=== PATIENT | female | born 1965 | race Caucasian/White ===

== ENCOUNTER 2016-02-19 16:23 | Emergency (ER) | payer BC, OTHER ==
[~2016-02-19] VITALS: Ht 165.1 cm; Wt 112.5 kg
[2016-02-19 17:17] LABS: BASOPHILS # (AUTO) 0.1 /CMM (0.0-0.2); BASOPHILS % (AUTO) 0.8 % (0.0-2.0); DIFF TOTAL % 100 %; EOSINOPHILS # (AUTO) 0.1 /CMM (0.0-0.7); EOSINOPHILS % (AUTO) 1.2 % (0.0-6.0); HEMATOCRIT 37 % (33-45); HEMOGLOBIN 12.6 g/dL (11.5-14.8); LYMPHOCYTES # (AUTO) 1.8 /CMM (0.8-4.8); LYMPHOCYTES % (AUTO) 18.8 % (20.0-44.0); MEAN CORPUSCULAR HEMOGLOBIN 30 PG (26.0-33.0); MEAN CORPUSCULAR HGB CONC 34 g/dl (31.0-36.0); MEAN CORPUSCULAR VOLUME 89 fL (82-100); MONOCYTES # (AUTO) 1.2 /CMM (0.1-1.30); MONOCYTES % (AUTO) 12.1 % (2.0-12.0); NEUTROPHILS # (AUTO) 6.6 /CMM (1.8-8.9); NEUTROPHILS % (AUTO) 67.1 % (43.0-81.0); PLATELET COUNT (AUTO) 215 /CMM (150-450); RED BLOOD CELL COUNT(AUTO) 4.19 MIL/uL (4.0-5.2); WHITE BLOOD COUNT (AUTO) 9.8 K/uL (4.3-11.0)
[2016-02-19 17:34] LABS: TROPONIN I < 0.017 ng/mL (0.00-0.056)
[2016-02-19 17:40] LABS: ANION GAP 8 (5-14); CALCIUM, SERUM 8.2 mg/dL (8.5-10.1); CARBON DIOXIDE 31 mmol/L (21-32); CHLORIDE 104 mmol/L (98-107); CREATININE 0.7 mg/dL (0.6-1.3); GFR 88 mL/min (>60); GLUCOSE 90 mg/dL (74-106); POTASSIUM 4.1 mmol/L (3.5-5.1); SODIUM SERUM 139 mmol/L (136-145); UREA NITROGEN, BLOOD 16 mg/dL (7-18)
[2016-02-19 17:42] LABS: INR 0.95 (0.87-1.13); PROTHROMBIN TIME 10.3 SECS (9.5-12.7)
[2016-02-19] MEDS ORDERED: ASPIRIN 325 MG TABLET PO ONE (18:30)
[2016-02-19] MEDS ORDERED: NITROGLYCERIN PACKET 1 GM PACKET TOP ONE (18:30)
[2016-02-19] MEDS ORDERED: NITROGLYCERIN PACKET 1 GM PACKET ONE (18:34)
[2016-02-19] MEDS ORDERED: ASPIRIN 325 MG TABLET ONE (18:34)
[2016-02-19 22:53] VITALS: BP 106/63
== END 2016-02-19 22:55 ==
LOC: ER 16:24
DX: R07.89 Other chest pain (principal); F10.20 Alcohol dependence, uncomplicated
CPT/HCPCS: 36415; 71010; 80048; 83880; 84484; 85025; 85730; 87081; 93005; 99285; A4606; Z7610

== ENCOUNTER 2016-05-28 22:45 | Emergency (ER) | payer OTHER ==
[~2016-05-28] VITALS: Ht 165.1 cm; Wt 108.9 kg
[2016-05-28 22:49] VITALS: BP 104/63
== END 2016-05-29 01:31 | disposition home or self-care (01) ==
LOC: ER 22:49
DX: M25.511 Pain in right shoulder (principal); F10.20 Alcohol dependence, uncomplicated
CPT/HCPCS: A4606; Z7610

== ENCOUNTER 2016-12-16 19:59 | Emergency (ER) | payer OTHER ==
[~2016-12-16] VITALS: Ht 165.1 cm; Wt 113.4 kg
--- NOTE | 2016-12-16 20:15 | NUR ---
PT BIB SELF AMBULATORY TO ER BED 7, PT C/O RT SHOULDER AND UPPER ARM PAIN RESULTING FROM A GLF FALL SATURDAY NIGHT. PT HAS A HX OF SURGERY ON SAME SHOULDER. PT VSS/RESP EVEN UNLABORED/NAD NOTED/SKIN WARM AND DRY/AOX4/ DENIES N/V/D. AWAITING MD ZAPATA.
--- NOTE | 2016-12-16 20:16 | NUR ---
AT BEDSIDE FOR EVAL.
--- NOTE | 2016-12-16 20:38 | NUR ---
XRAY AT BEDSIDE PER MD ORDERS.
[2016-12-16] MEDS ORDERED: oxyCODONE/APAP (5/325 MG) 1 UDTAB TABLET ONE (20:50)
[2016-12-16] MEDS ORDERED: oxyCODONE/APAP (5/325 MG) 1 UDTAB TABLET PO ONE (21:00)
--- NOTE | 2016-12-16 21:26 | NUR ---
AT BEDSIDE SPEAKING WITH PT.
--- NOTE | 2016-12-16 21:34 | NUR ---
Patient discharged to home in stable condition. Written and verbal after care instructions given, pt instructed not to drive. Patient verbalizes understanding of instruction. Pt ambulatory with a steady gait.
[2016-12-16 21:44] VITALS: BP 130/84
== END 2016-12-16 21:45 | disposition home or self-care (01) ==
LOC: ER 20:02
DX: M25.511 Pain in right shoulder (principal); G89.29 Other chronic pain; F41.9 Anxiety disorder, unspecified; Z90.49 Acquired absence of other specified parts of digestive tract; W18.39XA Other fall on same level, initial encounter; Y93.89 Activity, other specified; Y92.89 Other specified places as the place of occurrence of the external cause; Y99.8 Other external cause status
CPT/HCPCS: 73030; 99284; A4606; Z7610

== ENCOUNTER 2017-07-13 17:45 | Emergency (ER) | payer OTHER ==
[~2017-07-13] VITALS: Ht 167.6 cm; Wt 120.2 kg
--- NOTE | 2017-07-13 18:00 | NUR ---
RLQ PAIN X 1 WEEK, WORSENING TODAY. LEFT LEG THROBBING PAIN. NAD NOTED, VSS, RESP EVEN AND UNLABORED, PT WAS PUT ON MONITOR, WAITING FOR MD ZAPATA.
[2017-07-13] MEDS ORDERED: ONDANSETRON HCL/PF 4 MG/2 ML VIAL ONE (18:13)
[2017-07-13] MEDS ORDERED: KETOROLAC TROMETHAMINE INJ 30 MG/ML VIAL ONE (18:13)
--- NOTE | 2017-07-13 18:28 | NUR ---
URINE SAMPLE COLLECTED SENT TO LAB
--- NOTE | 2017-07-13 18:28 | NUR ---
LAC #20 IV ACCESS. BLOOD SAMPLE COLLECTED SENT TO LAB
[2017-07-13] MEDS ORDERED: IV NS 0.9% 1,000 ML BAG IV ONE (18:30)
[2017-07-13] MEDS ORDERED: ONDANSETRON HCL/PF 4 MG/2 ML VIAL IVP ONE (18:30)
[2017-07-13] MEDS ORDERED: KETOROLAC TROMETHAMINE INJ 30 MG/ML VIAL IV ONE (18:30)
[2017-07-13 18:49] LABS: APPEARANCE,URINE SL CLOUDY (CLEAR); BILIRUBIN,URINE NEGATIVE (NEGATIVE); BLOOD, URINE 3+ Ery/uL (NEGATIVE); COLOR,URINE YELLOW (YELLOW); KETONES,URINE NEGATIVE (NEGATIVE); LEUKOCYTE ESTERASE ,URINE TRACE (NEGATIVE); NITRITE, URINE NEGATIVE (NEGATIVE); PROTEIN,URINE NEGATIVE (NEGATIVE); UGLUCOSE NEGATIVE (NEGATIVE); UROBILINOGEN,URINE 0.2 EU/dL (0.2)
[2017-07-13 19:04] LABS: ALBUMIN 3.7 g/dL (3.4-5.0); BILIRUBIN,DIRECT 0.1 mg/dL (0.0-0.2); BILIRUBIN,TOTAL 0.3 mg/dL (0.2-1.0); CALCIUM, SERUM 8.9 mg/dL (8.5-10.1); CREATININE 0.7 mg/dL (0.6-1.3); POTASSIUM 4.1 mmol/L (3.5-5.1); TOTAL PROTEIN, SERUM 7.9 g/dL (6.4-8.2)
[2017-07-13 20:37] LABS: BASOPHILS % (AUTO) 0.5 % (0.0-2.0); EOSINOPHILS % (AUTO) 2.1 % (0.0-6.0); HEMATOCRIT 35 % (33-45); HEMOGLOBIN 11.8 g/dL (11.5-14.8); LYMPHOCYTES # (AUTO) 1.6 /CMM (0.8-4.8); LYMPHOCYTES % (AUTO) 18.2 % (20.0-44.0); MEAN CORPUSCULAR HGB CONC 34 g/dl (31.0-36.0); MEAN CORPUSCULAR VOLUME 84 fL (82-100); MONOCYTES % (AUTO) 11.7 % (2.0-12.0); NEUTROPHILS # (AUTO) 5.8 /CMM (1.8-8.9); NEUTROPHILS % (AUTO) 67.5 % (43.0-81.0); PLATELET COUNT (AUTO) 244 /CMM (150-450); RDW COEFFICIENT OF VARIATION 13.2 (11.5-15.0); RED BLOOD CELL COUNT(AUTO) 4.16 MIL/uL (4.0-5.2); WHITE BLOOD COUNT (AUTO) 8.5 K/uL (4.3-11.0)
[2017-07-13 21:35] VITALS: BP 129/71
[2017-07-13 21:51] LABS: BACTERIA,URINE 3+ /HPF (None Seen); RBC,URINE 21-50 /HPF (0-2)
== END 2017-07-13 21:36 | disposition home or self-care (01) ==
LOC: ER 17:54
DX: R10.31 Right lower quadrant pain (principal); F10.10 Alcohol abuse, uncomplicated; G89.29 Other chronic pain; F41.9 Anxiety disorder, unspecified; Z90.49 Acquired absence of other specified parts of digestive tract
CPT/HCPCS: 36415; 80048-TC; 80076-TC; 81000-TC; 83690-TC; 85025-TC; 87086-TC; A4606; J1885; J2405; J7030; Z7610

== ENCOUNTER 2018-07-22 18:23 | Emergency (ER) | payer MEDICAID, OTHER ==
[~2018-07-22] VITALS: Ht 165.1 cm; Wt 113.9 kg
--- NOTE | 2018-07-22 18:40 | NUR ---
C/O PALPITATION STARTED 5PM AFTER ARGUING WITH THE CO-WORKER.+DIZZINESS +NAUSEA. PATIENT A/OX4, DENIES CHEST PAIN AT THIS TIME. PATIENT PLACED ON THE MONITOR. NEEDS ATTENDED. WILL CONTINUE TO MONITOR.
[2018-07-22] MEDS ORDERED: LORAZEPAM 1 MG TABLET ONE (18:44)
--- NOTE | 2018-07-22 18:52 | NUR ---
PATIENT IS REQUESTING FOR URINE DRUG SCREEN. DR. TAYLOR MADE AWARE.
[2018-07-22 18:55] LABS: BASOPHILS % (AUTO) 0.3 % (0.0-2.0); EOSINOPHILS % (AUTO) 0.7 % (0.0-6.0); HEMATOCRIT 34 % (33-45); HEMOGLOBIN 11.7 g/dL (11.5-14.8); LYMPHOCYTES # (AUTO) 1.1 /CMM (0.8-4.8); LYMPHOCYTES % (AUTO) 13.3 % (20.0-44.0); MEAN CORPUSCULAR HGB CONC 34 g/dl (31.0-36.0); MEAN CORPUSCULAR VOLUME 94 fL (82-100); MONOCYTES # (AUTO) 0.8 /CMM (0.1-1.30); MONOCYTES % (AUTO) 8.9 % (2.0-12.0); NEUTROPHILS # (AUTO) 6.6 /CMM (1.8-8.9); NEUTROPHILS % (AUTO) 76.8 % (43.0-81.0); PLATELET COUNT (AUTO) 149 /CMM (150-450); RED BLOOD CELL COUNT(AUTO) 3.63 MIL/uL (4.0-5.2); WHITE BLOOD COUNT (AUTO) 8.6 K/uL (4.3-11.0)
[2018-07-22] MEDS ORDERED: LORAZEPAM 1 MG TABLET PO ONE (19:00)
[2018-07-22 19:02] LABS: CALCIUM, SERUM 9.1 mg/dL (8.5-10.1); CARBON DIOXIDE 27 mmol/L (21-32); CHLORIDE 104 mmol/L (98-107); GLUCOSE 117 mg/dL (74-106); POTASSIUM 3.5 mmol/L (3.5-5.1); SODIUM SERUM 142 mmol/L (136-145); UREA NITROGEN, BLOOD 26 mg/dL (7-18)
[2018-07-22 19:08] LABS: ALANINE AMINOTRANSFERASE 23 U/L (12-78); ALKALINE PHOSPHATASE 127 U/L (46-116); ASPARTATE AMINOTRANSFERASE 19 U/L (15-37); BILIRUBIN,DIRECT 0.1 mg/dL (0.0-0.2); BILIRUBIN,TOTAL 0.3 mg/dL (0.2-1.0); TOTAL PROTEIN, SERUM 7.8 g/dL (6.4-8.2)
[2018-07-22] MEDS ORDERED: IOHEXOL-350 100 ML VIAL IV ONE (19:19)
[2018-07-22] MEDS ORDERED: IV NS 0.9% 250 ML IV ONE (19:19)
[2018-07-22] MEDS ORDERED: CT SWABBABLE VALVE TRANS SET 1 EA INFUS.SET MC ONE (19:19)
--- NOTE | 2018-07-22 19:25 | NUR ---
PT TRANSPORTED TO RADIOLOGY FOR CT PULMONARY ANGIOGRAM.
--- NOTE | 2018-07-22 19:31 | NUR ---
URINE SAMPLE COLLECTED AND SENT TO LAB.
--- NOTE | 2018-07-22 19:44 | NUR ---
PATIENT CAME BACK FROM CT, PATIENT IN NAD, VSS. ENDORSED TO ED FOR YUKO.
--- NOTE | 2018-07-22 19:49 | NUR ---
PT BACK FROM RADIOLOGY. PENDING CT RESULT.
--- NOTE | 2018-07-22 20:14 | NUR ---
CT RESULT RECEIVED. ER MD MADE AWARE. PT VERBALIZE FEELING BETTER AFTER TAKING ATIVAN. PT AAOX4 NO ACUTE DISTRESS NOTED, RESP EVEN AND UNLABORED. CALL LIGHT WITHIN REACH. WILL CONTINUE TO MONITOR PT CLOSELY. PENDING DISPOSTION.
--- NOTE | 2018-07-22 20:16 | NUR ---
LOS GARRETT AT BEDSIDE TO RE-EVAL PT.
--- NOTE | 2018-07-22 20:33 | NUR ---
IV removed. Catheter intact and site benign. Pressure and 4x4 applied to site. No bleeding noted. Patient discharged to home in stable condition. Written and verbal after care instructions given. Patient verbalizes understanding of instruction. ambulatory with a steady gait noted. pt aaox4 no acute distress noted, resp even and unlabored. advice pt not to drive or operate any machienry due to pt was given ativan. pt verbalize understanding.
[2018-07-22 20:34] VITALS: BP 119/63
== END 2018-07-22 20:35 | disposition home or self-care (01) ==
LOC: ER 18:23
DX: F41.9 Anxiety disorder, unspecified (principal); G89.29 Other chronic pain; Z90.49 Acquired absence of other specified parts of digestive tract; Z98.890 Other specified postprocedural states; Z85.43 Personal history of malignant neoplasm of ovary
CPT/HCPCS: 36415; 71045; 71275; 80048; 80076; 80305; 84484; 85025; 93005; 99284; J7050; Q9967